=== PATIENT | male | born 1935 | race Caucasian/White ===

== ENCOUNTER 2019-06-21 13:53 | Inpatient (IN) | payer OTHER ==
[~2019-06-21] VITALS: Ht 175.3 cm; Wt 108.9 kg
[2019-06-21 13:53] VITALS: BP 162/65
--- NOTE | 2019-06-21 13:53 | NUR ---
Patient BIBA ALS, transferred to bed 11. RN evaluating patient at bedside.
--- NOTE | 2019-06-21 14:07 | NUR ---
Dr. Hameed is evaluating the patient at bedside.
--- NOTE | 2019-06-21 14:18 | NUR ---
XRAY AT BEDSIDE
[2019-06-21] MEDS ORDERED: SOTA80TA PO (14:26)
[2019-06-21] MEDS ORDERED: CANA1TAB3 PO (14:26)
[2019-06-21] MEDS ORDERED: SILD20TA PO (14:26)
[2019-06-21] MEDS ORDERED: SPIR25TA21 PO (14:26)
[2019-06-21] MEDS ORDERED: TAMS0.4C96 PO (14:26)
[2019-06-21] MEDS ORDERED: FENO145T PO (14:26)
[2019-06-21] MEDS ORDERED: FERR324T11 PO (14:26)
[2019-06-21] MEDS ORDERED: APIX2.5 PO (14:26)
[2019-06-21] MEDS ORDERED: LINA72CA PO (14:26)
[2019-06-21] MEDS ORDERED: VENL-152 PO (14:26)
[2019-06-21] MEDS ORDERED: SITA100T8 PO (14:26)
[2019-06-21] MEDS ORDERED: MELA5TAB6 PO (14:26)
[2019-06-21] MEDS ORDERED: FLUT1BLS3 IH (14:26)
[2019-06-21] MEDS ORDERED: RANI150C PO (14:26)
[2019-06-21] MEDS ORDERED: ATOR20TA PO (14:26)
[2019-06-21] MEDS ORDERED: FINA5TAB1 PO (14:26)
[2019-06-21] MEDS ORDERED: FOLIC ACID PO (14:26)
[2019-06-21] MEDS ORDERED: DOXY1TAB2 PO (14:26)
[2019-06-21] MEDS ORDERED: BUME2TAB PO (14:26)
[2019-06-21] MEDS ORDERED: PANT40EC28 PO (14:26)
[2019-06-21 14:56] LABS: BASOPHILS # (AUTO) 0.1 K/uL (0.00-0.22); EOSINOPHILS # (AUTO) 0.3 K/uL (0-0.4); EOSINOPHILS % (AUTO) 2.6 % (0.0-4.0); HEMATOCRIT 41.4 % (36-52); HEMOGLOBIN 12.9 g/dL (12.0-18.0); LYMPHOCYTES # (AUTO) 1.8 K/uL (2.0-11.5); LYMPHOCYTES % (AUTO) 14.3 % (20.5-51.1); MEAN CORPUSCULAR HEMOGLOBIN 25 pg (27-31); MEAN CORPUSCULAR HGB CONC 31 g/dL (33-37); MEAN CORPUSCULAR VOLUME 79.4 fL (80-94); MONOCYTES # (AUTO) 0.9 K/uL (0.8-1.0); MONOCYTES % (AUTO) 7.2 % (1.7-9.3); NEUTROPHILS # (AUTO) 9.5 K/uL (1.8-7.7); NEUTROPHILS % (AUTO) 74.9 % (42.2-75.2); PLATELET COUNT (AUTO) 155 K/uL (140-450); RED BLOOD CELL COUNT(AUTO) 5.21 MIL/uL (4.20-6.10); RED CELL DISTRIBUTION WIDTH 18.7 % (11.6-13.7); WHITE BLOOD COUNT (AUTO) 12.7 K/uL (4.8-10.8)
--- NOTE | 2019-06-21 14:56 | NUR ---
PATIENT COMPLAINS OF SHORTNESS OF BREATHE THAT IS WORSENING TODAY. LUNGS HAVE OCCASIONAL WHEEZING, O2 SATURATION 95% ON 3 LITERS NC, TACHYPNEA RESPIRATIONS 24. COMPLAINS OF NON PRODUCTIVE COUGH. BILATERAL LOWER EXTREMITY PITTING EDEMA, ABRASIONS, REDNESS, AND RIGHT LEG WARMTH ON TOUCH. PALPABLE PEDAL PULSES ON BOTH EXTREMITY. CAP REFILL < 3 SECONDS. PATIENT IS ALERT AND ORIENTED, BED IN LOWEST POSITION, LOCKED, AND BEDRAIL UPX1. PAST MEDICAL HISTORY OF DM2, PULMONARY HTN, DEMENTIA, CHF, AND AFIB
[2019-06-21 14:59] LABS: APPEARANCE,URINE CLOUDY (CLEAR); BILIRUBIN,URINE NEGATIVE (NEGATIVE); BLOOD, URINE TRACE-I (NEGATIVE); COLOR,URINE STRAW (YELLOW); LEUKOCYTE ESTERASE ,URINE 1+ (NEGATIVE); NITRITE, URINE NEGATIVE (NEGATIVE); PH,URINE 5.5 (5.0-9.0); UGLUCOSE 3+ (NEGATIVE)
[2019-06-21 15:11] LABS: RBC,URINE NONE SEEN /HPF (0-5); WBC,URINE 20-60 /HPF (0-5)
[2019-06-21 15:13] LABS: ALBUMIN 3.5 g/dL (3.4-5.0); ANION GAP 17.2 (8-16); ASPARTATE AMINOTRANSFERASE 11 U/L (15-37); CARBON DIOXIDE 22.1 mmol/L (21-32); CHLORIDE 104 mmol/L (98-107); CREATININE 1.1 mg/dL (0.7-1.3); GLUCOSE 230 mg/dL (74-106); POTASSIUM 4.3 mmol/L (3.5-5.1); SODIUM SERUM 139 mmol/L (136-145); TOTAL BILIRUBIN 0.3 mg/dL (0.0-1.0); UREA NITROGEN, BLOOD 25 mg/dL (7-18)
--- NOTE | 2019-06-21 15:15 | NUR ---
VITAL SIGNS TAKEN. PT ALERT AND AWAKE. AT BEDSIDE. NO COMPLAINTS AT THIS TIME
[2019-06-21 15:23] LABS: PROTHROMBIN TIME 9.8 secs (10.8-13.4)
[2019-06-21] MEDS ORDERED: cefTRIAXone 1,000 MG VIAL ONE (16:12)
[2019-06-21] MEDS ORDERED: NACL 0.9% 500 ML IV ONE (16:20)
[2019-06-21] MEDS ORDERED: NACL 0.9% 1,500 ML IV ONE (16:20)
--- NOTE | 2019-06-21 16:32 | NUR ---
VITALS TAKEN AT THIS TIME. PT ALERT AND AWAKE. PT ORIETNED TO PLACE AND PERSON, BUT CABNT RECALL EVENT OR TIME AT BEDSIDE
--- NOTE | 2019-06-21 17:12 | NUR ---
PATIENT HAS URINARY INCONTINENCE AT THIS TIME, CHANGED FOR COMFORT, REPOSITIONED IN BED
[2019-06-21] MEDS ORDERED: DOCUSATE SODIUM 100 MG GELCAP PO PRN (17:15)
[2019-06-21] MEDS ORDERED: ACETAMINOPHEN 325 MG TAB PO PRN (17:15)
[2019-06-21] MEDS ORDERED: MORPHINE SULFATE 2 MG/ML SYR IVP PRN (17:15)
--- NOTE | 2019-06-21 17:30 | NUR ---
PT AT BEDSIDE, VIVIANE LUCERO [phone], WILL CALL PCP PCP IS APRIL [phone]
--- NOTE | 2019-06-21 17:55 | NUR ---
Patient will be admitted to care of DR GARCIA. Admited to TELE. Will go to room 122B. Belongings list completed. Report to AMINA QURESHI. PATIENT TRANSPORTED WITH 3 L NC AND PORTABLE LITIGATION PARALEGAL NS INFUSING UPON ADMISSION
[2019-06-21 18:19] LABS: MAGNESIUM 1.5 mg/dL (1.8-2.4); PHOSPHORUS 3.7 mg/dL (2.5-4.9); THYROID STIMULATING HORMONE 1.19 uIU/mL (0.34-3.74)
[2019-06-21] MEDS ORDERED: ALBUTEROL SULFATE/IPRATROPIU 3 ML SOL IH PRN (18:20)
--- NOTE | 2019-06-21 19:00 | NUR ---
RECEIVED PT FROM PREVIOUS SHIFT RN, AM SHIFT, NURSE AMINA. PATIENT A, A O X 2, WITH SOME PERIODS OF CONFUSION. PT WITH IV ON THE RIGHT AC G 20. NO SIGNS OF PAIN AT THIS TIME, PT WITH O2 VIA NASAL CANNULA, RT TO ADJUST THE FI02. PT ORIENTED TO UNIT. FALL RISK PRECAUTION IN PLACE. WILL
[2019-06-21] MEDS ORDERED: MELATONIN 3 MG TAB PO PRN (19:45)
[2019-06-21] MEDS: NACL 0.9% 1,000 ML IV SCH (20:25)
[2019-06-21] MEDS: ALBUTEROL SULFATE/IPRATROPIU 3 ML SOL IH SCH (20:26)
--- NOTE | 2019-06-21 20:26 | NUR ---
DR. TOSCANO IN ROOM ASSESSING PATIENT WHILE ON HHN TREATMENT. ADVISED DR. TOSCANO THAT PT IS UNABLE TO PERFORM INCENTIVE SPIROMETER DUE TO DEMENTIA. AGREED AND STATED THAT HE WOULD CANCEL THE ORDER.
[2019-06-21] MEDS ORDERED: NON-FORMULARY ITEM (Ranitidine HCl (Ranitidine Hcl) 1 CAP) PO SCH (21:00)
[2019-06-21] MEDS: BUMETANIDE 1 MG TAB PO SCH (21:03)
[2019-06-21] MEDS: SOTALOL 80 MG TAB PO SCH (21:03)
[2019-06-21] MEDS: ATORVASTATIN 20 MG TAB PO SCH (21:03)
[2019-06-21] MEDS: APIXABAN 2.5 MG TAB PO SCH (21:04)
[2019-06-21] MEDS ORDERED: ZOLPIDEM 5 MG TAB PO PRN (22:40)
[2019-06-21] MEDS: methylPREDNISolone SS 125 MG/2 ML VIAL IVP SCH (23:18)
[2019-06-22] VITALS (7 sets, daily range): BP systolic 126–161; BP diastolic 47–77
--- NOTE | 2019-06-22 00:25 | NUR ---
INFORMED DR. TOSCANO ON BP 161/57; HR -46 BRADYCARDIA; EKG READING LAST 2340 [id number] AT [address] W/ FREQUENT PVC'S
--- NOTE | 2019-06-22 01:03 | NUR ---
PT TRYING TO GET UP ON BED; INADVERTENTLY PULLED OUT IV ON THE RIGHT AC; INSERTED IV ON THE LEFT HAND G 22, PATENT AND INTACT
--- NOTE | 2019-06-22 01:24 | NUR ---
DR. TOSCANO AWARE OF HIGH BP AND BRADYCARDIA W/ AUTOMATIC CUFF (bp machine)
--- NOTE | 2019-06-22 01:35 | NUR ---
PATIENT SPO2 ON 1L/M VIA NASAL CANNULA 98%. LEFT PATIENT ON ROOM AIR, SPO2 MAINTAINED AT 95%. PER OXYGEN ORDERS MAINTAIN SPO2 BETWEEN 88-92%. WILL CONTINUE TO MONITOR.
[2019-06-22] MEDS ORDERED: MAGNESIUM OXIDE 400 MG TAB PO SCH ×2 (02:00→09:30)
[2019-06-22] MEDS ORDERED: DEXTROSE 50% 50 ML SYR IVP PRN (02:20)
[2019-06-22] MEDS ORDERED: MAGNESIUM OXIDE 400 MG TAB ONE (02:21)
--- NOTE | 2019-06-22 02:32 | NUR ---
DR TOSCANO ORDERED RANDOM BS CHECK; RESULT IS 280; ORDERED 6 UNITS OF HUMALOG (REGULAR INSULIN)TO BE GIVEN
[2019-06-22] MEDS: HYDROcodone/APAP 7.5/325 MG 1 TAB PO PRN ×2 (03:45→13:06)
--- NOTE | 2019-06-22 03:45 | NUR ---
INFORMED DR. TOSCANO PT HAS PAIN, GIVEN NORCO ORDERED
[2019-06-22] MEDS: ONDANSETRON 4 MG/2 ML VIAL IM/IVP PRN ×2 (03:53→09:21)
--- NOTE | 2019-06-22 04:20 | NUR ---
DR. TOSCANO WENT TO BEDSIDE AND ASSESSES PT ON HIS PAIN. WILL ORDER
--- NOTE | 2019-06-22 04:40 | NUR ---
INSERTED ANDREWS CATHETER,ASEPTICALLY DRAINING PALE YELLOW URINE, MINIMAL IN AMOUNT.,PATENT
[2019-06-22] MEDS ORDERED: PHENAZOPYRIDINE 100 MG TAB PO SCH (05:00)
[2019-06-22] MEDS ORDERED: Z-GUARD PASTE TP ONE (05:24)
[2019-06-22] MEDS: PANTOPRAZOLE 40 MG TABEC PO SCH (06:00)
[2019-06-22] MEDS: methylPREDNISolone SS 125 MG/2 ML VIAL IVP SCH ×2 (06:01→15:40)
[2019-06-22] MEDS: BLOOD GLUCOSE MONITORING 1 DEV DEV FS SCH ×5 (06:02→20:39)
[2019-06-22] MEDS: INSULIN LISPRO SLIDING SCALE 100 UNITS/ML VIAL SUBQ PRN ×4 (06:03→20:42)
--- NOTE | 2019-06-22 06:30 | NUR ---
DR. GRAY AWARE OF ABNORMAL EKG, WILL ORDER AND I WILL CARRY OUT ORDERS
--- NOTE | 2019-06-22 06:30 | NUR ---
BLADDER SCONE DONE WITH 17 ML REMAINING IN THE BLADDER SINCE INSERTING THE ANDREWS CATHETER Addendum: 06/22/19 at 0740 by Aparna Fung RN BLADDER SCAN
[2019-06-22 06:42] LABS: BASOPHILS # (AUTO) 0.1 K/uL (0.00-0.22); BASOPHILS % (AUTO) 0.7 % (0.0-2.0); EOSINOPHILS % (AUTO) 0.4 % (0.0-4.0); HEMATOCRIT 44.6 % (36-52); HEMOGLOBIN 14.1 g/dL (12.0-18.0); LYMPHOCYTES # (AUTO) 0.8 K/uL (2.0-11.5); MEAN CORPUSCULAR HEMOGLOBIN 25 pg (27-31); MEAN CORPUSCULAR HGB CONC 32 g/dL (33-37); MEAN CORPUSCULAR VOLUME 79.4 fL (80-94); MONOCYTES # (AUTO) 0.1 K/uL (0.8-1.0); MONOCYTES % (AUTO) 1.2 % (1.7-9.3); NEUTROPHILS # (AUTO) 10.6 K/uL (1.8-7.7); NEUTROPHILS % (AUTO) 90.7 % (42.2-75.2); PLATELET COUNT (AUTO) 218 K/uL (140-450); RED BLOOD CELL COUNT(AUTO) 5.62 MIL/uL (4.20-6.10); RED CELL DISTRIBUTION WIDTH 18.5 % (11.6-13.7); WHITE BLOOD COUNT (AUTO) 11.7 K/uL (4.8-10.8)
[2019-06-22 06:46] LABS: ANION GAP 16.8 (8-16); CARBON DIOXIDE 25.1 mmol/L (21-32); CHLORIDE 105 mmol/L (98-107); CREATININE 0.9 mg/dL (0.7-1.3); GLUCOSE 287 mg/dL (74-106); PHOSPHORUS 3.9 mg/dL (2.5-4.9); POTASSIUM 3.9 mmol/L (3.5-5.1); SODIUM SERUM 143 mmol/L (136-145); UREA NITROGEN, BLOOD 22 mg/dL (7-18)
[2019-06-22 06:53] LABS: MAGNESIUM 1.6 mg/dL (1.8-2.4)
[2019-06-22] MEDS: ALBUTEROL SULFATE/IPRATROPIU 3 ML SOL IH SCH ×3 (07:01→19:39)
[2019-06-22] MEDS: BUDESONIDE 0.5 MG/2 ML NEBU INH SCH ×2 (07:03→19:43)
--- NOTE | 2019-06-22 07:28 | NUR ---
ENDORSED TO AM SHIFT, PT FOR MONITORING, A A 0 X 2, PT ON BEDREST AT THIS TIME W/ ANDREWS CATHETER DRAINING YELLOW URINE
--- NOTE | 2019-06-22 07:29 | NUR ---
Received bedside report from pm nurse Aparna. Pt resting in bed, awake, verbally responsive. No SOB in room air. RT Peter at bedside. Call light within reach. Bed alarm on. Valdivia cath intact & draining clear orange urine. Left forearm IV intact with ongoing NS @ 100ml/h.
[2019-06-22] MEDS: NACL 0.9% 1,000 ML IV SCH ×2 (07:30→23:57)
[2019-06-22] MEDS ORDERED: AZITHROMYCIN 250 MG TAB PO SCH (08:00)
--- NOTE | 2019-06-22 08:17 | NUR ---
PATIENT HAS BEEN SCREENED AND CATEGORIZED HIGH NUTRITION RISK. PATIENT WILL BE SEEN WITHIN 1-2 DAYS OF ADMISSION. 06/22/19-06/23/[address]
[2019-06-22] MEDS: FERROUS GLUCONATE 324 MG TAB PO SCH (08:29)
[2019-06-22] MEDS: TAMSULOSIN 0.4 MG CAP PO SCH (08:29)
[2019-06-22] MEDS: SPIRONOLACTONE 25 MG TAB PO SCH (08:30)
[2019-06-22] MEDS: BUMETANIDE 1 MG TAB PO SCH ×2 (08:32→20:44)
[2019-06-22] MEDS: SOTALOL 80 MG TAB PO SCH ×2 (08:32→20:41)
[2019-06-22] MEDS: FENOFIBRATE 48 MG TAB PO SCH (08:33)
[2019-06-22] MEDS: FOLIC ACID 1 MG TAB PO SCH (08:33)
[2019-06-22] MEDS: metFORMIN 500 MG TAB PO SCH ×2 (08:33→17:18)
[2019-06-22] MEDS: FINASTERIDE 5 MG TAB PO SCH (08:34)
[2019-06-22] MEDS: FAMOTIDINE 20 MG TAB PO SCH ×2 (08:34→20:44)
[2019-06-22] MEDS: SILDENAFIL 20 MG TAB PO SCH (08:35)
[2019-06-22] MEDS: VENLAFAXINE XR 75 MG CAPER PO SCH (08:35)
[2019-06-22] MEDS ORDERED: [UNRECOGNIZED DRUG - OTHER] PO SCH (09:00)
[2019-06-22] MEDS ORDERED: LINACLOTIDE 72 MCG PO SCH (09:00)
[2019-06-22] MEDS ORDERED: NON-FORMULARY ITEM (Fluticasone/Umeclidin/Vilanter (Trelegy Ellipta 100-62.5-25) 1 EACH) IH SCH (09:00)
--- NOTE | 2019-06-22 09:21 | NUR ---
Zofran given for c/o nausea. Pt sitting up in chair, no signs of distress, no abd pain/discomfort. at bedside. Call light within reach.
--- NOTE | 2019-06-22 10:21 | NUR ---
KATERINE REASSESSMENT: Pt verbalizes "I feel better than I did earlier." No c/o nausea. Pt sitting up in chair eating jello. at bedside. Call light within reach. IVF rate of NS decreased to 50ml/h per physician order.
--- NOTE | 2019-06-22 11:52 | NUR ---
Nanotechnology Engineering Technologist Note: Basic Screen: Yes High Risk DC Screen Yes Name: ARA SANTOS Home Relationship: Pre-Admission Living Arrangements: Lives with Other Prior ADL Total/Dependent Current Home Health Name/Tel: N/A Current DME/02 Name/Tel: [facility] [facility], 6L [employer] Current Hospice Name/Tel: N/A Current Dialysis Name/Tel: N/A Advance Directive Yes Physician Orders for Life Sustaining Treatment Form No - REFUSED Patient/Family Have Educational Needs No Information Taught: Advance Directive Community Resources Person Taught: Spouse Teaching Tools: Community Resources Verbal Factors Affecting Learning: None Participation Level: Active Evaluation: Verbalizes Understanding Needs Additional Education: No Discipline: Case Mgt/Social Svcs Tentative Discharge Plan/Destination: SNF/ECF Will require assistance post discharge: No Referred to Sling Operator: No Tentative Discharge Plan Summary: Patient is a 83 year old male admitted for sepsis and UTI from home. Patient has medical hx of CPOD, DMT2, HLD, dementia, CHF, GERD, and pulmonary hypertension. SW met with patient's Ara Santos to complete assessment and verify patient's demographics. Ara stated that she is the primary caregiver for patient. SW provided education on IHSS and provided resources to Ara. SW also provided education on advanced directives and provided two copies to Ara for her and patient. Ara denies any mental health history (other than dementia) or substance abuse history. Ara said that patient's plan is to sign AMA if patient is not released tomorrow, due to patient being in an unfamiliar setting. SW will follow up as needed. Signature: LONNIE Rutledge Date: Jun 22, 2019 Time: 11:49
--- NOTE | 2019-06-22 11:56 | NUR ---
06/22/19 RD INITIAL ASSESSMENT COMPLETED PLEASE REFER TO NUTRITION ASSESSMENT UNDER CARE ACTIVITY FOR ESTIMATED NUTRITIONAL NEEDS. 1. CONTINUE CCHO 60GM AND CARDIAC DIET TOLERATED 2. RECOMMEND GLUCERNA BID; IMPLEMENTED 3. RD PROVIDED NUTRITION EDUCATION ON DIABETES AND PROVIDED COUPONS FOR GLUCERNA 4. RD TO FOLLOW-UP 3-5 DAYS, MODERATE RISK SASHA HASSAN RD
[2019-06-22] MEDS: PHENAZOPYRIDINE 100 MG TAB PO SCH ×2 (12:09→17:18)
--- NOTE | 2019-06-22 14:36 | NUR ---
Pt asleep in bed, no signs of distress, respirations even & nonlabored. Call light within reach. and daughter at bedside.
--- NOTE | 2019-06-22 15:45 | NUR ---
manufacturing lab technician at bedside for echocardiogram. Pt resting in bed,no signs of distress. and daughter at bedside. Call light within reach.
--- NOTE | 2019-06-22 17:33 | NUR ---
PT REPOSITIONED IN BED. PT IS SITTING. IV RUNNING AT 50 ML/H. PT WATCHING TV.
--- NOTE | 2019-06-22 19:24 | NUR ---
Report given to pm nurse Nate. Pt asleep in bed, no signs of distress. Left forearm IV intact with ongoing NS @ 50ml/h. Call light within reach. Bed alarm on.
--- NOTE | 2019-06-22 19:25 | NUR ---
RECEIVED REPORT FROM AM SHIFT NURSE FOR CONTINUITY OF CARE. PATIENT ASLEEP. VISIBLE CHEST RISE AND FALL NOTED. IV ON LEFT FOREARM 22G RUNNING IVF. UPDATED BOARD. SAFETY PRECAUTIONS OBSERVED. BED ON LOW POSITION. BED ALARM ON. CALL LIGHT WITHIN REACH WILL CONTINUE TO MONITOR.
[2019-06-22] MEDS: methylPREDNISolone SS 40 MG/ML VIAL IVP SCH (20:39)
[2019-06-22] MEDS: APIXABAN 2.5 MG TAB PO SCH (20:45)
[2019-06-22] MEDS: ATORVASTATIN 20 MG TAB PO SCH (20:54)
--- NOTE | 2019-06-22 21:26 | NUR ---
DUE MEDICATIONS GIVEN ORDERED. NO DISTRESS NOTED. DENIES PAIN NOR DISCOMFORT. WILL CONTINUE TO MONITOR.
--- NOTE | 2019-06-22 23:24 | NUR ---
PATIENT ASLEEP IN BED. NO APPARENT DISTRESS NOTED. BED ALARM ON. BED ON LOW POSITION. CALL LIGHT WITHIN REACH. WILL CONTINUE TO MONITOR.
[2019-06-23] VITALS: BP 128/59
--- NOTE | 2019-06-23 01:20 | NUR ---
PATIENT ASLEEP IN BED. VISIBLE CHEST RISE AND FALL. NO DISTRESS NOTED. BED ON LOW POSITION. BED ALARM ON. WILL CONTINUE TO MONITOR.
--- NOTE | 2019-06-23 02:44 | NUR ---
ROUNDS DONE. PATIENT ASLEEP IN BED. NO DISTRESS NOTED. BED ON LOW POSITION. VISIBLE CHEST RISE AND FALL NOTED. BED ALARM ON. CALL LIGHT WITHIN REACH. WILL CONTINUE TO MONITOR.
[2019-06-23 04:00] VITALS: BP 115/51
--- NOTE | 2019-06-23 04:35 | NUR ---
ROUNDS DONE. PATIENT AWAKE. DENIES PAIN NOR DISCOMFORT. NO S/SX OF DISTRESS NOTED. BED ALARM ON. BED ON LOW POSITION. CALL LIGHT WITHIN REACH. WILL CONTINUE TO MONITOR.
[2019-06-23] MEDS: methylPREDNISolone SS 40 MG/ML VIAL IVP SCH ×2 (05:40→13:00)
[2019-06-23] MEDS: PANTOPRAZOLE 40 MG TABEC PO SCH (05:41)
[2019-06-23] MEDS: INSULIN LISPRO SLIDING SCALE 100 UNITS/ML VIAL SUBQ PRN ×2 (05:42→12:36)
[2019-06-23] MEDS: BLOOD GLUCOSE MONITORING 1 DEV DEV FS SCH ×2 (05:42→11:26)
--- NOTE | 2019-06-23 06:15 | NUR ---
ROUNDS DONE. PATIENT AWAKE IN BED. NO APPARENT DISTRESS NOTED. BED ALARM ON. BED ON LOW POSITION. CALL LIGHT WITHIN REACH. WILL CONTINUE TO MONITOR. Addendum: 06/23/19 at 0619 by Ruth Dumas RN WILL ENDORSE TO NEXT SHIFT FOR CONTINUITY OF CARE.
[2019-06-23 06:45] LABS: HEMATOCRIT 43.7 % (36-52); HEMOGLOBIN 13.7 g/dL (12.0-18.0); MEAN CORPUSCULAR HEMOGLOBIN 25 pg (27-31); MEAN CORPUSCULAR HGB CONC 31 g/dL (33-37); MEAN CORPUSCULAR VOLUME 79.1 fL (80-94); PLATELET COUNT (AUTO) 263 K/uL (140-450); RED BLOOD CELL COUNT(AUTO) 5.52 MIL/uL (4.20-6.10)
[2019-06-23 06:47] LABS: ANION GAP 17.3 (8-16); CARBON DIOXIDE 26.5 mmol/L (21-32); CHLORIDE 99 mmol/L (98-107); CREATININE 1.3 mg/dL (0.7-1.3); GLUCOSE 397 mg/dL (74-106); POTASSIUM 3.8 mmol/L (3.5-5.1); SODIUM SERUM 139 mmol/L (136-145); UREA NITROGEN, BLOOD 38 mg/dL (7-18)
[2019-06-23 06:51] LABS: MAGNESIUM 1.6 mg/dL (1.8-2.4); PHOSPHORUS 5.3 mg/dL (2.5-4.9)
--- NOTE | 2019-06-23 07:13 | NUR ---
RECEIVED PT FROM NIGHT NURSE. PT IN BED AWAKE, OBEYS COMMANDS, AAOX2. RESPIRATIONS EVEN AND UNLABORED ON ROOM AIR. CLEAR BREATH SOUNDS. IV IN PLACE L FA 22G PATENT INTACT AND ASYMPTOMATIC INFUSING PER ORDER. SKIN INTACT. ANDREWS IN PLACE. BED IN LOW POSITION. SAFETY MEASURES IN PLACE. CALL LIGHT WITHIN REACH. WILL CONTINUE TO MONITOR.
[2019-06-23] MEDS: ALBUTEROL SULFATE/IPRATROPIU 3 ML SOL IH SCH ×2 (07:16→13:24)
[2019-06-23] MEDS: BUDESONIDE 0.5 MG/2 ML NEBU INH SCH (07:16)
[2019-06-23 07:37] LABS: LYMPHOCYTES % (MANUAL) 5 % (20-46)
[2019-06-23 07:38] LABS: MONOCYTES % (MANUAL) 3 % (5-12)
[2019-06-23 08:00] VITALS: BP 137/90
[2019-06-23] MEDS ORDERED: AZITHROMYCIN 250 MG TAB PO SCH (09:00)
[2019-06-23] MEDS: FAMOTIDINE 20 MG TAB PO SCH (09:54)
[2019-06-23] MEDS: FERROUS GLUCONATE 324 MG TAB PO SCH (09:54)
[2019-06-23] MEDS: metFORMIN 500 MG TAB PO SCH ×2 (09:54→17:22)
[2019-06-23] MEDS: FINASTERIDE 5 MG TAB PO SCH (09:55)
[2019-06-23] MEDS: TAMSULOSIN 0.4 MG CAP PO SCH (09:55)
[2019-06-23] MEDS: BUMETANIDE 1 MG TAB PO SCH (09:55)
[2019-06-23] MEDS: PHENAZOPYRIDINE 100 MG TAB PO SCH ×3 (09:55→17:22)
[2019-06-23] MEDS: SPIRONOLACTONE 25 MG TAB PO SCH (09:56)
[2019-06-23] MEDS: SOTALOL 80 MG TAB PO SCH (09:56)
[2019-06-23] MEDS: VENLAFAXINE XR 75 MG CAPER PO SCH (09:56)
[2019-06-23] MEDS: SILDENAFIL 20 MG TAB PO SCH (09:57)
[2019-06-23] MEDS: FENOFIBRATE 48 MG TAB PO SCH (09:57)
[2019-06-23] MEDS: FOLIC ACID 1 MG TAB PO SCH (09:57)
--- NOTE | 2019-06-23 10:15 | NUR ---
MEDICATIONS ADMINISTERED PER ORDER. PT TOLERATED WELL. NO SIDTRESS NOTED. WILL CONTINUE TO MONITOR.
[2019-06-23] MEDS ORDERED: MAG SULF 2000 MG/WATER PREMIX 50 ML IV SCH (11:00)
[2019-06-23 12:00] VITALS: BP 124/57
[2019-06-23] MEDS ORDERED: CHLORHEXADINE GLUC 2% CLOTH TP SCH (12:00)
[2019-06-23] MEDS ORDERED: MUPIROCIN 2% OINT 22 GM TUBE TP SCH (12:00)
--- NOTE | 2019-06-23 12:29 | NUR ---
CARMEL HAWKINS: 83 YRS OLD MALE WAS ADMITTED FROM HOME WITH A DX OF SEPSIS , UTI . HX OF DEMENTIA, CHF,COPD AND BBH . IVF , [facility] IVPB GIVEN FNS CONSULT FOR DIABETIC RT PROTOCOL FOR COPD , WILL REPEAT LA , CARDIO CONSULT ECHO ORDERED DC PLAN TO GO BACK HOME .CM TO FOLLOW
--- NOTE | 2019-06-23 12:48 | NUR ---
VITAL SIGNS MONITORED AT THIS TIME. ANDREWS CATHETER REMOVED. IN ROOM WITH PT. NO DISTRESS NOTED. WILL CONTINUE TO MONITOR.
--- NOTE | 2019-06-23 15:03 | NUR ---
MEDICATIONS ADMINISTERED PER ORDER. PT TOLERATED WELL. WILL CONTINUE TO MONITOR.
[2019-06-23] MEDS ORDERED: LORazepam 0.5 MG TAB PO PRN (16:25)
--- NOTE | 2019-06-23 17:30 | NUR ---
PT LEFT AT THIS TIME AGAINST MEDICAL ADVICE. FORM SIGNED BY PT. IV REMOVED WITH MINIMAL BLOOD LOSS AND LUMEN INTACT. PT LEFT IN PRIVATE VEHICLE ACCOMPANIED BY AND DAUGHTER. ESCORTED PT AND OFF THE UNIT IN WHEELCHAIR.
[2019-06-23] MEDS ORDERED: VANCOMYCIN PER PHARMACY MC PRN (19:05)
== END 2019-06-23 17:30 | disposition left against medical advice (07) | DRG 871 ==
LOC: MED 13:53 → MTU 17:13
PROVIDERS: ADMIT General Practice; ATTEND General Practice
DX: A41.9 Sepsis, unspecified organism (principal); N17.0 Acute kidney failure with tubular necrosis; N12 Tubulo-interstitial nephritis, not specified as acute or chronic; J44.1 Chronic obstructive pulmonary disease with (acute) exacerbation; R65.20 Severe sepsis without septic shock; G30.9 Alzheimer's disease, unspecified; K21.9 Gastro-esophageal reflux disease without esophagitis; E78.5 Hyperlipidemia, unspecified; N40.0 Benign prostatic hyperplasia without lower urinary tract symptoms; Z53.29 Procedure and treatment not carried out because of patient's decision for other reasons; I48.0 Paroxysmal atrial fibrillation; E83.42 Hypomagnesemia; E11.21 Type 2 diabetes mellitus with diabetic nephropathy; K58.9 Irritable bowel syndrome, unspecified; F02.80 Dementia in other diseases classified elsewhere, unspecified severity, without behavioral disturbance, psychotic disturbance, mood disturbance, and anxiety; I27.20 Pulmonary hypertension, unspecified; I50.9 Heart failure, unspecified; Z99.81 Dependence on supplemental oxygen; Z79.899 Other long term (current) drug therapy; Z87.891 Personal history of nicotine dependence
CPT/HCPCS: 36415; 36600; 71045; 80048; 80053; 81001; 82150; 82803; 82948; 83036; 83605; 83690; 83735; 83880; 84100; 84443; 84484; 85025; 85610; 85730; 87040; 87081; 87086; 87186; 93005; 94640; 96365; 97110; 97116; 97161-GP; 97530; 99291; J0696; J1815; J2270; J2405; J2920; J2930; J3475; J7030; J7060; J7620; J7626; Q0092